=== PATIENT | male | born 1970 | race Caucasian/White ===

== ENCOUNTER 2021-08-13 23:15 | Emergency (ER) | payer OTHER ==
[~2021-08-13 23:15] MED LIST: BETHANECHOL CHL25 MG PO; FLEXERIL10 MG PO; FLOMAX0.4 MG PO; PRILOSEC20 MG PO; TOPAMAX50 MG PO; VITAMIN D1000 UNIT PO
[2021-08-13 23:46] LABS: BASOPHIL 0.7 % (0-2); EOSINOPHIL 1.4 % (0-5); HCT 48.3 % (42.0-52.0); HGB 16.7 g/dl (13.2-18.0); LYMPHOCYTE 21.4 % (15-48); MCH 30.2 pg (25.0-31.0); MCHC 34.6 g/dL (32.0-36.0); MCV 87.3 fL (78.0-100.0); MONOCYTE 7.7 % (0-12); MPV 9.5 fL (6.0-9.5); NEUTROPHIL 68.4 % (41-80); NRBC 0; PLT 318 K/uL (150-400); RBC 5.53 M/uL (4.70-6.00); RDW 12.8 % (11.5-14.0); WBC 11.1 K/uL (4.0-10.5)
[2021-08-14 00:01] LABS: CREATININE 0.94 mg/dL (0.67-1.17); POTASSIUM 3.8 mmol/L (3.5-5.1)
== END 2021-08-14 01:51 | disposition home or self-care (01) ==
LOC: FER 23:15
PROVIDERS: Internal Medicine
DX: I10 Essential (primary) hypertension (principal); R11.2 Nausea with vomiting, unspecified; F17.210 Nicotine dependence, cigarettes, uncomplicated; Z20.822 Contact with and (suspected) exposure to COVID-19; Z79.899 Other long term (current) drug therapy
CPT/HCPCS: 36415; 80048; 85025; J1170; J2405; J3490; Q9967; U0002